=== PATIENT | female | born 1960 | race Caucasian/White ===

== ENCOUNTER 2021-10-09 01:04 | Emergency (ER) | payer BC, SELFPAY ==
[~2021-10-09] VITALS: Ht 160 cm; Wt 79.4 kg
[2021-10-09 01:10] VITALS: BP_SYST 161
--- NOTE | 2021-10-09 01:10 | NUR ---
Patient triaged and placed in the tent. VSS and patient appears in no acute distress at this time. Accompanied by , awaiting available bed, and MD notified of need for MSE.
--- NOTE | 2021-10-09 02:00 | NUR ---
BORA Mckeon examining patient in the tent.
--- NOTE | 2021-10-09 02:52 | NUR ---
Patient given written and verbal discharge instructions and verbalizes understanding. ER MD discussed with patient the results and treatment provided. Patient in stable condition. ID arm band removed. no Rx of given. Patient educated on pain management and to follow up with PMD. Pain Scale 0/10. Opportunity for questions provided and answered. Medication side effect fact sheet provided.
[2021-10-09 02:54] VITALS: BP_SYST 153
== END 2021-10-09 02:54 | disposition home or self-care (01) ==
LOC: SED 01:04
DX: R05.9 Cough, unspecified (principal); R53.83 Other fatigue; M79.10 Myalgia, unspecified site; Z20.822 Contact with and (suspected) exposure to COVID-19; I10 Essential (primary) hypertension; Z52.4 Kidney donor
CPT/HCPCS: 36415; 99283